=== PATIENT | male | born 1970 | race Caucasian/White ===

== ENCOUNTER 2018-03-19 11:05 | Day surgery (SDC) | payer OTHER ==
[~2018-03-19 11:05] MED LIST: LIDOCAINE 2% (SDV) 5 ML INJ; PROPOFOL 200 MG INJ; ROCURONIUM 50 MG INJ
[2018-03-19] MEDS ORDERED: BUPIVACAINE 0.25%/EPI (MDV) 50 ML VIAL INJ (12:40)
[2018-03-19] MEDS ORDERED: CEFAZOLIN 2 GM/50 ML (PMX) 50 ML IVPB (13:00)
[2018-03-19] MEDS ORDERED: SOD CHLORIDE 0.9% 1,000 ML IV (13:00)
[2018-03-19] MEDS: BUPIVACAINE 0.25% (STERILE-PAK) 30 ML INJ INJ (13:35)
[2018-03-19] MEDS: POLYMYXIN/BACITRACIN 1L IRRIG IRR (13:35)
[2018-03-19] MEDS ORDERED: KETOROLAC 30 MG INJ (14:09)
[2018-03-19] MEDS ORDERED: ONDANSETRON 4 MG INJ (14:09)
[2018-03-19] MEDS ORDERED: DEXAMETHASONE 4 MG/ML 1 ML INJ (14:09)
[2018-03-19] MEDS ORDERED: CEFAZOLIN 1 GM INJ (14:09)
[2018-03-19] MEDS ORDERED: ROPIVACAINE 0.2% 20 ML VIAL (14:50)
[2018-03-19] MEDS ORDERED: SUGAMMADEX SODIUM 200 MG/2 ML VIAL IV (14:50)
[2018-03-19] MEDS ORDERED: IBUPROFEN 600 MG TAB PO (15:00)
[2018-03-19] MEDS ORDERED: ONDANSETRON 4 MG INJ IV (15:00)
[2018-03-19] MEDS ORDERED: HYDROmorphONE 1 MG/5 ML IV SYRINGE IV (15:30)
[2018-03-21] MEDS ORDERED: SOD CHLORIDE 0.9% 1,000 ML IV (06:00)
[2018-03-21] MEDS ORDERED: CEFAZOLIN 2 GM/50 ML (PMX) 50 ML IVPB (06:00)
== END 2018-03-19 16:30 | disposition home or self-care (01) ==
LOC: SDS 11:05
DX: K40.90 Unilateral inguinal hernia, without obstruction or gangrene, not specified as recurrent (principal); I10 Essential (primary) hypertension; E78.5 Hyperlipidemia, unspecified
CPT/HCPCS: 49505

== ENCOUNTER 2018-05-07 09:12 | Day surgery (SDC) | payer OTHER ==
[2018-05-07] MEDS ORDERED: CEFAZOLIN 1 GM/50 ML (PMX) 50 ML IVPB (11:00)
[2018-05-07 11:07] LABS: ADD MAN DIFF? NO
[2018-05-07 11:12] LABS: EOSINOPHILS # 0.1 10^3/ul (0.0-0.5); EOSINOPHILS % 2.6 % (0.0-7.0); HEMATOCRIT 41.6 % (42.0-52.0); HEMOGLOBIN 14.4 g/dl (14.0-18.0); LYMPHOCYTES # 1.5 10^3/ul (0.8-2.9); LYMPHOCYTES % 38.2 % (15.0-51.0); MEAN CORPUSCULAR HEMOGLOBIN 31.4 pg (29.0-33.0); MEAN CORPUSCULAR HGB CONC 34.6 g/dl (32.0-37.0); MEAN CORPUSCULAR VOLUME 90.6 fl (82.0-101.0); MEAN PLATELET VOLUME 9.1 fl (7.4-10.4); MONOCYTE # 0.3 10^3/ul (0.3-0.9); MONOCYTES % 7.8 % (0.0-11.0); NEUTROPHIL # 1.9 10^3/ul (1.6-7.5); NEUTROPHILS % 49.9 % (39.0-77.0); PLATELET COUNT 277 10^3/UL (140-415); RED BLOOD COUNT 4.59 10^6/ul (4.70-6.10); RED CELL DISTRIBUTION WIDTH 13.5 % (11.5-14.5)
[2018-05-07 11:12] LABS: WHITE BLOOD COUNT 3.9 10^3/ul (4.8-10.8)
[2018-05-07 11:21] LABS: HOLD TRANSMISSIONS 1
[2018-05-07 11:31] LABS: ALANINE AMINOTRANSFERASE 41 IU/L (13-69); ALBUMIN 4.4 g/dl (3.3-4.9); ALBUMIN/GLOBULIN RATIO 1.37; ALKALINE PHOSPHATASE 88 IU/L (42-121); ANION GAP 11 (8-16); ASPARTATE AMINO TRANSFERASE 36 IU/L (15-46); BILIRUBIN,INDIRECT 0.7 mg/dl (0-1.1); BILIRUBIN,TOTAL 0.7 mg/dl (0.2-1.3); BLOOD UREA NITROGEN 14 mg/dl (7-20); CALCIUM 9.2 mg/dl (8.4-10.2); CARBON DIOXIDE 26 mmol/L (21-31); CHLORIDE 105 mmol/L (97-110); CREATININE 0.76 mg/dl (0.61-1.24); GLUCOSE 103 mg/dl (70-220); POTASSIUM 3.9 mmol/L (3.5-5.1); SODIUM 138 mmol/L (135-144); TOTAL PROTEIN 7.6 g/dl (6.1-8.1)
[2018-05-07] MEDS: SOD CHLORIDE 0.9% 1,000 ML IV (11:33)
[2018-05-07 11:36] LABS: INR 0.91; PROTIME 12.3 Sec (11.9-14.9)
[2018-05-07] MEDS ORDERED: POLYMYXIN/BACITRACIN 1L IRRIG (12:09)
[2018-05-07] MEDS ORDERED: FENTAnyl 50 MCG/ML VIAL IV ×2 (12:30)
[2018-05-07] MEDS ORDERED: hydrALAzine 20 MG INJ IV (12:30)
[2018-05-07] MEDS ORDERED: LABETALOL HCL 20MG INJ IV (12:30)
[2018-05-07] MEDS ORDERED: MIDAZOLAM 1 MG/ML 2 ML INJ (12:36)
[2018-05-07] MEDS ORDERED: FENTAnyl 50 MCG/ML VIAL (12:36)
[2018-05-07] MEDS ORDERED: PROPOFOL 20 ML (12:50)
[2018-05-07] MEDS ORDERED: DEXAMETHASONE 4 MG/ML 1 ML INJ (12:50)
[2018-05-07] MEDS ORDERED: LIDOCAINE 2% (SDV) 5 ML INJ (12:50)
[2018-05-07] MEDS ORDERED: ROCURONIUM 50 MG INJ (12:50)
[2018-05-07] MEDS ORDERED: ONDANSETRON 4 MG INJ (12:50)
[2018-05-07] MEDS: BUPIVACAINE 0.25%/EPI (SDV) 30 ML INJ (13:07)
[2018-05-07] MEDS ORDERED: SUGAMMADEX SODIUM 200 MG/2 ML VIAL IV (13:07)
[2018-05-07 13:09] LABS: PARTIAL THROMBOPLASTIN TIME 31.1 Sec (25.0-35.0)
[2018-05-07] MEDS ORDERED: KETOROLAC 30 MG INJ IV (14:30)
[2018-05-07] MEDS ORDERED: ONDANSETRON 4 MG INJ IV (14:30)
[2018-05-07] MEDS ORDERED: morphine 2 MG INJ IV (14:30)
[2018-05-07] MEDS ORDERED: HYDROCODONE/APAP (5/325) TAB PO ×2 (14:30)
[2018-05-07] MEDS ORDERED: IBUPROFEN 600 MG TAB PO (14:30)
[2018-05-07] MEDS: HYDROmorphONE 1 MG/5 ML IV SYRINGE IV ×3 (14:42→15:02)
[2018-05-07] MEDS: ONDANSETRON 4 MG INJ IV (14:43)
== END 2018-05-07 16:35 | disposition home or self-care (01) ==
LOC: SDS 09:12
DX: K40.90 Unilateral inguinal hernia, without obstruction or gangrene, not specified as recurrent (principal)
CPT/HCPCS: 49650; 80053; 85025; 85610; 85730